=== PATIENT | male | born 1970 | race Caucasian/White ===

== ENCOUNTER 2017-03-25 02:23 | Emergency (ER) | payer MEDICAID ==
--- NOTE | 2017-03-25 03:39 | EDM.PDOC ---
ED HPI GENERAL MEDICAL PROBLEM - General Chief Complaint: Gastrointestinal Problem Stated Complaint: BLOATING Time Seen by Provider: 03/25/17 03:27 Source of Information: Reports: Patient, Family, RN Notes Reviewed History Limitations: Reports: No Limitations - History of Present Illness INITIAL COMMENTS - FREE TEXT/NARRATIVE: 46-year-old gentleman presents emergency department today with complaint of abdominal pain, he states the abdominal pain has been ongoing for the last couple of hours he has developed a fever has had nausea vomiting and loose stools multiple does have a history of abdominal surgery lumbar no shortness of breath or chest pain epigastric Pain Score (Numeric/FACES): 8 - Related Data Allergies Allergy/AdvReac Type Severity Reaction Status Date / Time erythromycin base Allergy Cannot Verified 03/25/17 03:25 Remember Tuwbdpn-Wiw-Spj Reductase Allergy Cannot Verified 03/25/17 03:25 Inhibitor Remember Sulfa (Sulfonamide Allergy Cannot Verified 03/25/17 03:25 Antibiotics) Remember Home Meds: Home Meds Aspirin [Halfprin] 81 mg PO DAILY 04/20/16 [History] Hydrocodone/Acetaminophen [[place] 5-325] 1 - 2 tab PO Q6H PRN 04/20/16 [History] Losartan Potassium [Cozaar] 100 mg PO DAILY 04/20/16 [History] Multivit-Min/Iron Fum/Folic AC [Czjup-Vmpsukx-Dlznwvqs Tablet] 1 each PO DAILY 04/20/16 [History] Omeprazole 40 mg PO DAILY 04/20/16 [History] amLODIPine [Norvasc] 5 mg PO DAILY 04/20/16 [History] Past Medical History HEENT History: Reports: Impaired Vision, Other (See Below) Other HEENT History: wisdom teeth x2 removed Respiratory History: Reports: Bronchitis, Recurrent Gastrointestinal History: Reports: Chronic Diarrhea, Colon Polyp, GERD Musculoskeletal History: Reports: Back Pain, Chronic, Fracture, Neck Pain, Chronic Endocrine/Metabolic History: Reports: Diabetes, Type II Dermatologic History: Reports: Other (See Below) Other Dermatologic History: "adult cradlecap" - Infectious Disease History Infectious Disease History: Reports: Chicken Pox, Measles - Past Surgical History Neurological Surgical History: Reports: Laminectomy, Spinal Fusion Musculoskeletal Surgical History: Reports: Carpal Tunnel, Other (See Below) Dermatological Surgical History: Reports: Skin Biopsy Social & Family History - Family History Family Medical History: Noncontributory - Tobacco Use Smoking Status *Q: Never Smoker - Caffeine Use Caffeine Use: Reports: Coffee - Alcohol Use Days Per Week of Alcohol Use: 4 Number of Drinks Per Day: 5 Total Drinks Per Week: 20 - Recreational Drug Use Recreational Drug Use: No ED ROS GENERAL - Review of Systems Review Of Systems: See Below Constitutional: Reports: Fever, Chills HEENT: Reports: No Symptoms Respiratory: Reports: No Symptoms Cardiovascular: Reports: No Symptoms GI/Abdominal: Reports: Abdominal Pain, Diarrhea, Flatus, Nausea, Vomiting : Reports: No Symptoms Musculoskeletal: Reports: No Symptoms Skin: Reports: No Symptoms Neurological: Reports: No Symptoms ED EXAM, GI/ABD - Physical Exam Exam: See Below Text/Narrative:: General: Male, not in any distress, alert and oriented x3 HEENT: head is atraumatic normocephalic, eyes pupils equal round reactive to light, sclera clear no conjunctivitis appreciated. Ears tympanic membranes clear and hanson landmarks and light reflex are present bilaterally canals are clear. Nose no septal deviation, nares are clear, no blood present. Mouth mucosa is moist and pink no erythema or exudate noted in soft palate, tongue is midline uvula is midline, dentition is intact. Neck: Supple no thyromegaly no tracheal deviation. Nodes: Cervical nodes subclavicular nodes nontender no palpable lymphadenopathy noted. Lungs: clear to auscultation bilaterally with symmetrical respirations, no adventitious noise appreciated. CV: Regular rate and rhythm S1 and S2 appreciated no murmurs rubs or gallops noted. Abdomen: Soft, obese, tender to palpation in epigastric region, no palpable masses or organomegaly appreciated, mild distention no guarding bowel sounds are present, . Neuro: Cranial nerves II through XII grossly intact Skin: Warm and dry, intact Extremities: No lower extremity edema appreciated, pedal pulse is +2. Course - Vital Signs Last Recorded V/S: Last Vital Signs Temp 103.1 F H 03/25/17 05:00 Pulse 114 H 03/25/17 05:00 Resp 18 03/25/17 05:00 BP 130/61 03/25/17 05:00 Pulse Ox 95 03/25/17 05:00 - Orders/Labs/Meds Orders: Active Orders 24 hr Category Date Time Status Vital Signs [RC] Q1H Care 03/25/17 03:34 Active Abdomen Pelvis w Cont [CT] Stat Exams 03/25/17 03:36 Taken CULTURE BLOOD [BC] Urgent Lab 03/25/17 03:45 Received CULTURE BLOOD [BC] Urgent Lab 03/25/17 03:50 Received Iopamidol [Isovue-300 (61%)] Med 03/25/17 04:45 Active 150 ml IV . DIRECTED Lactated Ringers [Ringers, Lactated] 1,000 ml Med 03/25/17 03:45 Active IV ASDIRECTED Lactated Ringers [Ringers, Lactated] 1,000 ml Med 03/25/17 05:14 Active IV BOLUS Sodium Chloride 0.9% [Saline Flush] Med 03/25/17 04:31 Active 10 ml FLUSH ONETIME PRN Blood Culture x2 Reflex Set [OM.PC] Urgent Oth 03/25/17 03:34 Ordered Medication Orders Lactated Ringer's (Ringers, Lactated) 1,000 mls @ 999 mls/hr IV ASDIRECTED [place] Last Admin: 03/25/17 03:52 Dose: 999 mls/hr Lactated Ringer's (Ringers, Lactated) 1,000 mls @ 999 mls/hr IV BOLUS ONE Stop: 03/25/17 06:14 Last Admin: 03/25/17 05:20 Dose: 999 mls/hr Iopamidol (Isovue-300 (61%)) 150 ml IV . DIRECTED [facility] Last Admin: 03/25/17 04:46 Dose: 150 ml Sodium Chloride (Saline Flush) 10 ml FLUSH ONETIME PRN PRN Reason: PER RADIOLOGY PROTOCOL Last Admin: 03/25/17 04:46 Dose: 10 ml Labs: Laboratory Tests 03/25/17 03/25/17 03/25/17 Range/Units 03:50 03:53 03:53 WBC 9.3 (4.5-11.0) K/uL RBC 5.54 (4.30-5.90) M/uL Hgb 16.6 H (12.0-15.0) g/dL Hct 49.1 (40.0-54.0) % MCV 89 (80-98) fL MCH 30 (27-31) pg MCHC 34 (32-36) % Plt Count 173 (150-400) K/uL Neut % (Auto) 89 H (36-66) % Lymph % (Auto) 4 L (24-44) % Ritchie % (Auto) 6 (2-6) % Eos % (Auto) 1 L (2-4) % Baso % (Auto) 0 (0-1) % Sodium 138 L (140-148) mmol/L Potassium 4.2 (3.6-5.2) mmol/L Chloride 102 (100-108) mmol/L Carbon Dioxide 25 (21-32) mmol/L Anion Gap 15.2 H (5.0-14.0) mmol/L BUN 22 H (7-18) mg/dL Creatinine 1.2 (0.8-1.3) mg/dL Est Cr Clr Drug Dosing 77.73 mL/min Estimated GFR (MDRD) > 60 (>60) Glucose 141 H (74-106) mg/dL Lactic Acid (0.4-2.0) mmol/L Calcium 8.9 (8.5-10.1) mg/dL Total Bilirubin 0.9 (0.2-1.0) mg/dL AST 28 (15-37) U/L ALT 70 (12-78) U/L Alkaline Phosphatase 73 (46-116) U/L Troponin I < 0.017 (0.000-0.056) ng/mL C-Reactive Protein 2.44 H (0.0-0.3) mg/dL Total Protein 7.6 (6.4-8.2) g/dL Albumin 4.0 (3.4-5.0) g/dL Globulin 3.6 H (2.3-3.5) g/dL Albumin/Globulin Ratio 1.1 L (1.2-2.2) Urine Color Urine Appearance Urine pH (4.5-8.0) Ur Specific [place] (1.008-1.030) Urine Protein (NEGATIVE) mg/dL Urine Glucose (UA) (NEGATIVE) mg/dL Urine Ketones (NEGATIVE) mg/dL Urine Occult Blood (NEGATIVE) Urine Nitrite (NEGAITVE) Urine Bilirubin (NEGATIVE) Urine Urobilinogen (NORMAL) mg/dL Ur Leukocyte Esterase (NEGATIVE) Urine RBC (0-5) Urine WBC (0-5) Ur Epithelial Cells Amorphous Sediment Urine Bacteria Urine Mucus 03/25/17 03/25/17 Range/Units 03:53 04:58 WBC (4.5-11.0) K/uL RBC (4.30-5.90) M/uL Hgb (12.0-15.0) g/dL Hct (40.0-54.0) % MCV (80-98) fL MCH (27-31) pg MCHC (32-36) % Plt Count (150-400) K/uL Neut % (Auto) (36-66) % Lymph % (Auto) (24-44) % Ritchie % (Auto) (2-6) % Eos % (Auto) (2-4) % Baso % (Auto) (0-1) % Sodium (140-148) mmol/L Potassium (3.6-5.2) mmol/L Chloride (100-108) mmol/L Carbon Dioxide (21-32) mmol/L Anion Gap (5.0-14.0) mmol/L BUN (7-18) mg/dL Creatinine (0.8-1.3) mg/dL Est Cr Clr Drug Dosing mL/min Estimated GFR (MDRD) (>60) Glucose (74-106) mg/dL Lactic Acid 2.1 H (0.4-2.0) mmol/L Calcium (8.5-10.1) mg/dL Total Bilirubin (0.2-1.0) mg/dL AST (15-37) U/L ALT (12-78) U/L Alkaline Phosphatase (46-116) U/L Troponin I (0.000-0.056) ng/mL C-Reactive Protein (0.0-0.3) mg/dL Total Protein (6.4-8.2) g/dL Albumin (3.4-5.0) g/dL Globulin (2.3-3.5) g/dL Albumin/Globulin Ratio (1.2-2.2) Urine Color Yellow Urine Appearance Clear Urine pH 5.0 (4.5-8.0) Ur Specific [place] 1.010 (1.008-1.030) Urine Protein Negative (NEGATIVE) mg/dL Urine Glucose (UA) Normal (NEGATIVE) mg/dL Urine Ketones Negative (NEGATIVE) mg/dL Urine Occult Blood Negative (NEGATIVE) Urine Nitrite Negative (NEGAITVE) Urine Bilirubin Negative (NEGATIVE) Urine Urobilinogen Normal (NORMAL) mg/dL Ur Leukocyte Esterase Negative (NEGATIVE) Urine RBC Not seen (0-5) Urine WBC Not seen (0-5) Ur Epithelial Cells Not seen Amorphous Sediment Not seen Urine Bacteria Not seen Urine Mucus Not seen Meds: Medications Generic Name Dose Route Start Last Admin Trade Name Freq PRN Reason Stop Dose Admin Lactated Ringer's 1,000 mls @ 999 mls/hr 03/25/17 03:45 03/25/17 03:52 Ringers, Lactated IV 999 mls/hr ASDIRECTED [place] Administration Lactated Ringer's 1,000 mls @ 999 mls/hr 03/25/17 05:14 03/25/17 05:20 Ringers, Lactated IV 03/25/17 06:14 999 mls/hr BOLUS ONE Administration Iopamidol 150 ml 03/25/17 04:45 03/25/17 04:46 Isovue-300 (61%) IV 150 ml . DIRECTED [place] Administration Sodium Chloride 10 ml 03/25/17 04:31 03/25/17 04:46 Saline Flush FLUSH 10 ml ONETIME PRN Administration PER RADIOLOGY PROTOCOL Discontinued Medications Generic Name Dose Route Start Last Admin Trade Name Freq PRN Reason Stop Dose Admin Aspirin 325 mg 03/25/17 05:40 03/25/17 05:50 Ecotrin PO 03/25/17 05:41 325 mg ONETIME ONE Administration Sodium Chloride 85 mls @ 3 mls/sec 03/25/17 04:31 03/25/17 04:46 Normal Saline IV 03/25/17 04:32 3 mls/sec ONETIME ONE Administration Ibuprofen 600 mg 03/25/17 05:02 03/25/17 05:12 Motrin PO 03/25/17 05:03 Not Given ONETIME ONE Departure - Departure Time of Disposition: 06:01 Disposition: Home, Self-Care 01 Condition: Good Clinical Impression: Ileus - Discharge Information Referrals: PCP,None [Primary Care Provider] - Forms: ED Department Discharge Additional Instructions: Recommend bowel rest for the next 3 days with just a clear liquid diet, recommend fever control with Tylenol, Please followup with your primary care provider in 3-5 days if not better, please call return to the emergency department with worsening of symptoms. - My Orders Last 24 Hours: My Active Orders 03/25/17 03:34 Vital Signs [RC] Q1H Blood Culture x2 Reflex Set [OM.PC] Urgent 03/25/17 03:36 Abdomen Pelvis w Cont [CT] Stat 03/25/17 03:45 CULTURE BLOOD [BC] Urgent Lactated Ringers [Ringers, Lactated] 1,000 ml IV ASDIRECTED 03/25/17 03:50 CULTURE BLOOD [BC] Urgent 03/25/17 04:31 Sodium Chloride 0.9% [Saline Flush] 10 ml FLUSH ONETIME PRN 03/25/17 04:45 Iopamidol [Isovue-300 (61%)] 150 ml IV . DIRECTED 03/25/17 05:14 Lactated Ringers [Ringers, Lactated] 1,000 ml IV BOLUS - Assessment/Plan Last 24 Hours: My Active Orders 03/25/17 03:34 Vital Signs [RC] Q1H Blood Culture x2 Reflex Set [OM.PC] Urgent 03/25/17 03:36 Abdomen Pelvis w Cont [CT] Stat 03/25/17 03:45 CULTURE BLOOD [BC] Urgent Lactated Ringers [Ringers, Lactated] 1,000 ml IV ASDIRECTED 03/25/17 03:50 CULTURE BLOOD [BC] Urgent 03/25/17 04:31 Sodium Chloride 0.9% [Saline Flush] 10 ml FLUSH ONETIME PRN 03/25/17 04:45 Iopamidol [Isovue-300 (61%)] 150 ml IV . DIRECTED 03/25/17 05:14 Lactated Ringers [Ringers, Lactated] 1,000 ml IV BOLUS Plan: Assessment Acuity = acute Site and laterality = ileus Etiology = unclear etiology Manifestations = abdominal distention, fever, tachycardia Location of injury = Home Lab values = CBC, CMP, urinalysis unremarkable CT scan shows ileus or possible small bowel obstruction partial Plan I did offer him hospital admission he declined would like to try bowel rest at home will return if his symptoms increase follow-up with primary care 3-5 days if not better Patient was in agreement with the plan all questions were answered, they were instructed to return to the emergency department or call for worsening symptoms. This note was dictated using [email or web address] voice recognition software please call with any questions.
[2017-03-25] MEDS ORDERED: Lactated Ringers 1,000 ML IV SCH (03:45)
[2017-03-25] MEDS ORDERED: Sodium Chloride 0.9% 10 ML Syringe FLUSH PRN (04:31)
[2017-03-25] MEDS ORDERED: Iopamidol 612 MG/ML 150 ML Bottle IV SCH (04:45)
[2017-03-25 05:01] VITALS: BP 130/61
[2017-03-25] MEDS: Ibuprofen 600 MG Tab PO ONE ×2 (05:07→05:12)
[2017-03-25] MEDS ORDERED: Lactated Ringers 1,000 ML IV ONE (05:14)
[2017-03-25] MEDS ORDERED: Aspirin 325 MG Tab.EC PO ONE (05:40)
[2017-03-25] MEDS ORDERED: Acetaminophen 325 MG Tab PO ONE (06:01)
== END 2017-03-25 06:15 | disposition home or self-care (01) ==
LOC: JP.ED 02:23
DX: K56.7 Ileus, unspecified (principal); E11.9 Type 2 diabetes mellitus without complications; K21.9 Gastro-esophageal reflux disease without esophagitis; Z79.82 Long term (current) use of aspirin; Z79.899 Other long term (current) drug therapy; Z88.1 Allergy status to other antibiotic agents; Z88.2 Allergy status to sulfonamides; Z88.8 Allergy status to other drugs, medicaments and biological substances
CPT/HCPCS: 36415; 74177; 80053; 81001; 83605; 84484; 85025; 86140; 87040; 87804; 96360; 96361; 99284; A9270; J7030; J7050; J7120; 99283

== ENCOUNTER 2021-04-04 20:04 | Emergency (ER) | payer MEDICAID ==
[2021-04-04 20:48] VITALS: BP 154/89; PULSE 82
--- NOTE | 2021-04-04 21:05 | EDM.PDOC ---
ED HPI GENERAL MEDICAL PROBLEM - General Chief Complaint: Lower Extremity Injury/Pain Stated Complaint: LEFT CALF-WEAK AND TINGLY Time Seen by Provider: 04/04/21 21:05 Source of Information: Reports: Patient, RN Notes Reviewed History Limitations: Reports: No Limitations - History of Present Illness INITIAL COMMENTS - FREE TEXT/NARRATIVE: Luke presents today for complaints of left lower leg weakness with use of stairs since yesterday when he removed 6 boat batteries from boats. He states he feels like his foot is asleep and weaker then the right foot. He denies any other i njury, trauma, fever, chills, nausea, vomiting or other concerns. He denies loss of sensation to his genitals or bladder/bowel incontinence. History of lumbar fusions. Left Lower Leg Pain Score (Numeric/FACES): 6 - Related Data Allergies Allergy/AdvReac Type Severity Reaction Status Date / Time erythromycin base Allergy Cannot Verified 04/04/21 20:50 Remember Qflfaxc-GZA-NrI Reductase Allergy Cannot Verified 04/04/21 20:50 Inhibitor Remember [Mbjpmmh-Drk-Ojg Reductase Inhibitor] Sulfa (Sulfonamide Allergy Cannot Verified 04/04/21 20:50 Antibiotics) Remember Home Meds: Home Meds Aspirin [Halfprin] 81 mg PO DAILY 04/20/16 [History] Losartan Potassium [Cozaar] 100 mg PO DAILY 04/20/16 [History] Multivit-Min/Iron Fum/Folic AC [Eoefg-Vjlumni-Kzxaqzvb Tablet] 1 each PO DAILY 04/20/16 [History] Omeprazole 40 mg PO DAILY 04/20/16 [History] Cholecalciferol (Vitamin D3) [Vitamin D3] 1 tab PO DAILY 04/04/21 [History] Sucralfate 1 tab PO DAILY 04/04/21 [History] amLODIPine Besylate [Amlodipine Besylate] 1 tab PO DAILY 04/04/21 [History] atenoloL [Atenolol] 1 tab PO DAILY 04/04/21 [History] glipiZIDE [Glipizide ER] 1 tab PO DAILY 04/04/21 [History] hydroCHLOROthiazide [Hydrochlorothiazide] 1 tab PO DAILY 04/04/21 [History] metFORMIN HCl [Metformin HCl] 1 tab PO BID 04/04/21 [History] Past Medical History HEENT History: Reports: Impaired Vision, Other (See Below) Other HEENT History: wisdom teeth x2 removed Cardiovascular History: Reports: Hypertension Respiratory History: Reports: Bronchitis, Recurrent Gastrointestinal History: Reports: Chronic Diarrhea, Colon Polyp, GERD Musculoskeletal History: Reports: Back Pain, Chronic, Fracture, Neck Pain, Chronic Endocrine/Metabolic History: Reports: Diabetes, Type II Dermatologic History: Reports: Other (See Below) Other Dermatologic History: "adult cradlecap" - Infectious Disease History Infectious Disease History: Reports: Chicken Pox, Measles - Past Surgical History HEENT Surgical History: Reports: None GI Surgical History: Reports: Colonoscopy Endocrine Surgical History: Reports: None Neurological Surgical History: Reports: Laminectomy, Spinal Fusion Musculoskeletal Surgical History: Reports: Carpal Tunnel, Other (See Below) Other Musculoskeletal Surgeries/Procedures:: ACL repair right knee; left and right elbow scopes for tennis elbow Dermatological Surgical History: Reports: Skin Biopsy Social & Family History - Family History Family Medical History: No Pertinent Family History - Tobacco Use Tobacco Use Status *Q: Never Tobacco User - Caffeine Use Caffeine Use: Reports: Coffee - Recreational Drug Use Recreational Drug Use: No Review of Systems - Review of Systems Review Of Systems: See Below Constitutional: Reports: No Symptoms Eyes: Reports: No Symptoms Ears: Reports: No Symptoms Nose: Reports: No Symptoms Mouth/Throat: Reports: No Symptoms Respiratory: Reports: No Symptoms Cardiovascular: Reports: No Symptoms GI/Abdominal: Reports: No Symptoms Genitourinary: Reports: No Symptoms Musculoskeletal: Reports: Back Pain (chronic low back pain), Other (feels like left lower leg/foot are asleep). Denies: Leg Pain, Foot Pain (does complain of foot weakness with range of motion ), Joint Swelling, Muscle Pain, Muscle Stiffness Skin: Reports: No Symptoms Neurological: Reports: No Symptoms Psychiatric: Reports: No Symptoms ED EXAM, GENERAL - Physical Exam Exam: See Below Exam Limited By: No Limitations General Appearance: Alert, WD/WN, No Apparent Distress Eye Exam: Bilateral Eye: Normal Inspection, PERRL Ears: Normal External Exam, Normal Canal, Hearing Grossly Normal, Normal TMs Nose: Normal Inspection, Normal Mucosa, No Blood Throat/Mouth: Normal Inspection, Normal Lips, Normal Teeth, Normal Gums, Normal Oropharynx, Normal Voice, No Airway Compromise Head: Atraumatic, Normocephalic Neck: Normal Inspection, Supple, Non-Tender, Full Range of Motion. No: Lymphadenopathy (R), Lymphadenopathy (L) Respiratory/Chest: No Respiratory Distress, Lungs Clear, Normal Breath Sounds, No Accessory Muscle Use, Chest Non-Tender. No: Crackles, Rales, Rhonchi, Wheezing, Retractions, Splinting Cardiovascular: Normal Peripheral Pulses, Regular Rate, Rhythm, No Edema, No Gallop, No Murmur, No Rub Peripheral Pulses: 4+: Radial (L), Radial (R), Dorsalis Pedis (L), Dorsalis Pedis (R) GI/Abdominal: Normal Bowel Sounds, Soft, Non-Tender, No Organomegaly, No Distention, No Abnormal Bruit, Pelvis Stable. No: Guarding, Rigid, Rebound, Tender (Male) Exam: Deferred Rectal (Males) Exam: Deferred Back Exam: Normal Inspection, Full Range of Motion. No: CVA Tenderness (R), CVA Tenderness (L), Muscle Spasm, Paraspinal Tenderness, Vertebral Tenderness Extremities: Non-Tender, No Pedal Edema, Normal Capillary Refill, Limited Range of Motion (difficulty with extension of left foot, flexion intact. Weakness noted with tip toe walking left foot. ). No: Quentin's Sign (negative), Increased Warmth, Mottled, Pallor, Redness Neurological: Alert, Oriented, CN II-XII Intact, Normal Cognition, Normal Gait, Normal Reflexes, No Motor/Sensory Deficits Psychiatric: Normal Affect, Normal Mood Skin Exam: Warm, Dry, Intact, Normal Color, No Rash, Other (Noted hair growth to bilateral lower 2nd toes. No hair growth from foot to mid-calf. ) Lymphatic: No Adenopathy Course - Vital Signs Last Recorded V/S: Last Vital Signs Temp 36.3 C 04/04/21 20:47 Pulse 82 04/04/21 20:47 Resp 16 04/04/21 20:47 BP 154/89 H 04/04/21 20:47 Pulse Ox 95 04/04/21 20:47 - Orders/Labs/Meds Labs: Laboratory Tests 04/04/21 04/04/21 04/04/21 Range/Units 21:45 21:45 21:45 WBC 7.3 (4.5-11.0) K/uL RBC 5.23 (4.30-5.90) M/uL Hgb 15.6 H (12.0-15.0) g/dL Hct 45.6 (40.0-54.0) % MCV 87 (80-98) fL MCH 30 (27-31) pg MCHC 34 (32-36) % Plt Count 143 L (150-400) K/uL D-Dimer, Quantitative 294.50 (0.0-500.0) ng/mL Sodium 134 L (140-148) mmol/L Potassium 3.9 (3.6-5.2) mmol/L Chloride 97 L (100-108) mmol/L Carbon Dioxide 26 (21-32) mmol/L Anion Gap 14.9 H (5.0-14.0) mmol/L BUN 21 H (7-18) mg/dL Creatinine 0.8 (0.8-1.3) mg/dL Est Cr Clr Drug Dosing 115.04 mL/min Estimated GFR (MDRD) > 60 (>60) Glucose 140 H (74-106) mg/dL Calcium 9.2 (8.5-10.1) mg/dL D-dimer negative Meds: Medications Discontinued Medications Generic Name Dose Route Start Last Admin Trade Name [place] PRN Reason Stop Dose Admin Ketorolac Tromethamine 30 mg 04/04/21 22:31 04/04/21 22:35 Ketorolac 30 Mg/Ml Sdv IM 04/04/21 22:32 30 mg ONETIME ONE Administration Discussed lab work and recommendations with Luke, he is in agreement with plan. All his questions were answered. Departure - Departure Time of Disposition: 22:35 Disposition: Home, Self-Care 01 Condition: Good Clinical Impression: Lumbar back pain with radiculopathy affecting left lower extremity, Weakness of left foot - Discharge Information Instructions: Radicular Pain Referrals: Oswald Allison NP [Primary Care Provider] - Forms: ED Department Discharge Additional Instructions: You have been evaluated and treated for low back pain with radiculopathy to left foot with weakness of left foot/toes upon extension. Significant history of lumbar issues. Lab work did not show any acute findings. D-dimer negative - no blood clot. You were given toradol 30mg IM for discomfort. You can try use of tylenol as needed for pain. Use of NSAID and muscle relaxer work best to help with radiculopathy. Use has bothered your stomach in the past - try use of naproxen 500mg by mouth every 12 hours for pain and monitor your stomach. Use of steroid would cause increase blood sugar - and should be monitored by your primary if used. Avoid repetitive movements that increase pain. Avoid lifting heavy objects until improvement. Follow up with primary in 7 to 10 days for recheck - you most likely need a MRI of your lumbosacral spine for ongoing evaluation and new left foot weakness. Follow up with neurosurgeon is also appropriate as determined per your primary provider. Sepsis Event Note (ED) - Evaluation Sepsis Screening Result: No Definite Risk - Focused Exam Vital Signs: Vital Signs Temp Pulse Resp BP Pulse Ox 04/04/21 20:47 36.3 C 82 16 154/89 H 95 - Assessment/Plan Assessment:: Lumbar back pain with radiculopathy affecting left lower extremity, Weakness of left foot Chronic lumbar issues, history of fusion, chronic pain, with poorly controlled diabetes. Plan: Patient evaluated and treated for low back pain with radiculopathy to left foot with weakness of left foot/toes upon extension. Significant history of lumbar issues. Lab work did not show any acute findings. D-dimer negative - no blood clot. He was given toradol 30mg IM for discomfort. He can try use of tylenol as needed for pain. Use of NSAID and muscle relaxer work best to help with radiculopathy. Use has bothered his stomach in the past - try use of naproxen 500mg by mouth every 12 hours for pain and monitor your stomach. Use of steroid would cause increase blood sugar - and should be monitored by primary if used. Avoid repetitive movements that increase pain. Avoid lifting heavy objects until improvement. Follow up with primary in 7 to 10 days for recheck - he will most likely need a MRI lumbosacral spine for ongoing evaluation and new left foot weakness. Follow up with neurosurgeon is also appropriate as determined per his primary provider.
[2021-04-04] MEDS ORDERED: Ketorolac 30 MG/ML SDV IM ONE (22:31)
== END 2021-04-04 22:53 | disposition home or self-care (01) ==
LOC: JP.ED 20:04
DX: R53.1 Weakness (principal); M54.16 Radiculopathy, lumbar region; E11.9 Type 2 diabetes mellitus without complications; K21.9 Gastro-esophageal reflux disease without esophagitis; I10 Essential (primary) hypertension; Z79.82 Long term (current) use of aspirin; Z88.1 Allergy status to other antibiotic agents; Z88.2 Allergy status to sulfonamides; Z79.84 Long term (current) use of oral hypoglycemic drugs; Z79.899 Other long term (current) drug therapy
CPT/HCPCS: 36415; 80048; 85027; 85379; 96372; 99283; J1885

== ENCOUNTER → 2021-09-13 | Day surgery (SDC) | payer MEDICAID ==
[~2021-09-13] MED LIST: Midazolam 1 MG/ML 2 ML SDV ONE; Propofol 200 MG/20 ML SDV ONE; Sodium Chloride 0.9% 1,000 ML IV SCH; fentaNYL 100 MCG/2 ML SDV ONE
[2021-09-13 09:01] VITALS: BP 133/69; PULSE 61
== END ==
LOC: JP.SDS 06:28
PROVIDERS: ATTEND Surgery
DX: D12.3 Benign neoplasm of transverse colon (principal); K21.00 Gastro-esophageal reflux disease with esophagitis, without bleeding; K57.30 Diverticulosis of large intestine without perforation or abscess without bleeding; I10 Essential (primary) hypertension; E11.9 Type 2 diabetes mellitus without complications; E66.9 Obesity, unspecified; Z87.19 Personal history of other diseases of the digestive system; Z68.35 Body mass index [BMI] 35.0-35.9, adult
CPT/HCPCS: 88305; J2250; J2704; J3010; J7030

== ENCOUNTER 2024-09-13 07:26 | Day surgery (SDC) | payer MEDICAID ==
[2024-09-13] MEDS ORDERED: fentaNYL 100 MCG/2 ML SDV ONE (07:35)
[2024-09-13] MEDS ORDERED: Midazolam 1 MG/ML 2 ML SDV ONE (07:35)
[2024-09-13] MEDS ORDERED: Propofol 200 MG/20 ML SDV ONE (07:35)
[2024-09-13] MEDS: Lactated Ringers 1,000 ML IV SCH (08:26)
[2024-09-13 10:04] VITALS: BP 142/90; PULSE 75
== END 2024-09-13 10:05 | disposition home or self-care (01) ==
LOC: JP.SDS 07:26
PROVIDERS: ATTEND Surgery
DX: Z12.11 Encounter for screening for malignant neoplasm of colon (principal); D12.4 Benign neoplasm of descending colon; K57.30 Diverticulosis of large intestine without perforation or abscess without bleeding; I10 Essential (primary) hypertension; K21.9 Gastro-esophageal reflux disease without esophagitis; E11.9 Type 2 diabetes mellitus without complications; Z86.0100 Personal history of colon polyps, unspecified
CPT/HCPCS: 00811; 45380; 88305; J2250; J2704; J3010; J7120

== ENCOUNTER 2025-01-09 02:33 | Emergency (ER) | payer MEDICAID ==
[2025-01-09 03:23] LABS: BASOPHILS ABSOLUTE AUTO 0.04 K/uL (0.00-0.10); BASOPHILS PERCENT AUTO 0.3 % (0.1-1.3); EOSINOPHILS ABSOLUTE AUTO 0.18 K/uL (0.00-0.40); EOSINOPHILS PERCENT AUTO 1.4 % (0.0-5.4); IMMATURE GRAN ABSOLUTE AUTO 0.09 K/uL (0.00-0.23); IMMATURE GRAN PERCENT AUTO 0.7 % (0.0-0.7); LYMPHOCYTES ABSOLUTE AUTO 2.44 K/uL (0.8-3.3); LYMPHOCYTES PERCENT AUTO 19.1 % (11.4-47.7); MONOCYTES ABSOLUTE AUTO 0.87 K/uL (0.20-0.90); MONOCYTES PERCENT AUTO 6.8 % (3.3-12.6); NEUTROPHILS ABSOLUTE AUTO 9.14 K/uL (1.0-7.6); NEUTROPHILS PERCENT AUTO 71.7 % (40.0-78.1); PLATELET COUNT,PLT 226 K/uL (130-375); RED BLOOD CELL COUNT 4.66 M/uL (4.14-5.76); WHITE BLOOD CELL COUNT,WBC 12.8 K/uL (3.2-11.0)
[2025-01-09 03:44] LABS: A/G RATIO 1.1 (1.2-2.2); ALANINE AMINOTRANSFERASE,ALT 80 U/L (12-78); ASPARTATE AMNIOTRANSFERASE,AST 34 U/L (15-37); BILIRUBIN TOTAL 0.8 mg/dL (0.2-1.0); BLOOD UREA NITROGEN,BUN 28 mg/dL (7-18); CARBON DIOXIDE,CO2 27 mmol/L (21-32); CHLORIDE,CL 99 mmol/L (100-108); CREATININE 1.0 mg/dL (0.8-1.3); EST CRCL DRUG DOSING (CG) 86.51 mL/min; ESTIMATED GFR 88 mL/min (>60); GLUCOSE RANDOM 168 mg/dL (74-106); POTASSIUM,K 3.9 mmol/L (3.6-5.2); PROTEIN TOTAL,TP 7.5 g/dL (6.4-8.2); SODIUM,NA 137 mmol/L (140-148)
[2025-01-09] MEDS: Ketorolac 30 MG/ML SDV IM ONE (04:06)
[2025-01-09 04:55] VITALS: BP 144/83; PULSE 88
== END 2025-01-09 05:06 | disposition home or self-care (01) ==
LOC: JP.ED 02:33
DX: M25.561 Pain in right knee (principal); G89.18 Other acute postprocedural pain; E66.9 Obesity, unspecified; E11.9 Type 2 diabetes mellitus without complications; Z88.1 Allergy status to other antibiotic agents; Z88.2 Allergy status to sulfonamides; Z88.8 Allergy status to other drugs, medicaments and biological substances; Z91.018 Allergy to other foods; Z79.82 Long term (current) use of aspirin; Z79.899 Other long term (current) drug therapy; Z87.891 Personal history of nicotine dependence; Z68.36 Body mass index [BMI] 36.0-36.9, adult
CPT/HCPCS: 36415; 80053; 82947; 85025; 96372; 99283; J1885

== ENCOUNTER 2025-01-09 20:10 | Emergency (ER) | payer MEDICAID ==
[2025-01-09 23:02] VITALS: BP 115/70; PULSE 58
[2025-01-10 00:04] LABS: BASOPHILS ABSOLUTE AUTO 0.05 K/uL (0.00-0.10); BASOPHILS PERCENT AUTO 0.4 % (0.1-1.3); EOSINOPHILS ABSOLUTE AUTO 0.21 K/uL (0.00-0.40); EOSINOPHILS PERCENT AUTO 1.8 % (0.0-5.4); IMMATURE GRAN ABSOLUTE AUTO 0.14 K/uL (0.00-0.23); IMMATURE GRAN PERCENT AUTO 1.2 % (0.0-0.7); LYMPHOCYTES ABSOLUTE AUTO 2.54 K/uL (0.8-3.3); LYMPHOCYTES PERCENT AUTO 22.3 % (11.4-47.7); MONOCYTES ABSOLUTE AUTO 0.85 K/uL (0.20-0.90); MONOCYTES PERCENT AUTO 7.5 % (3.3-12.6); NEUTROPHILS ABSOLUTE AUTO 7.61 K/uL (1.0-7.6); NEUTROPHILS PERCENT AUTO 66.8 % (40.0-78.1); PLATELET COUNT,PLT 221 K/uL (130-375); RED BLOOD CELL COUNT 4.69 M/uL (4.14-5.76); WHITE BLOOD CELL COUNT,WBC 11.4 K/uL (3.2-11.0)
[2025-01-10] MEDS: Ketorolac 30 MG/ML SDV IM ONE (00:17)
[2025-01-10 00:44] LABS: A/G RATIO 1.1 (1.2-2.2); ALANINE AMINOTRANSFERASE,ALT 78 U/L (12-78); ASPARTATE AMNIOTRANSFERASE,AST 29 U/L (15-37); BILIRUBIN TOTAL 1.2 mg/dL (0.2-1.0); BLOOD UREA NITROGEN,BUN 24 mg/dL (7-18); CARBON DIOXIDE,CO2 23 mmol/L (21-32); CHLORIDE,CL 96 mmol/L (100-108); CREATININE 0.9 mg/dL (0.8-1.3); EST CRCL DRUG DOSING (CG) 94.63 mL/min; ESTIMATED GFR 100 mL/min (>60); GLUCOSE RANDOM 119 mg/dL (74-106); POTASSIUM,K 3.6 mmol/L (3.6-5.2); PROTEIN TOTAL,TP 7.7 g/dL (6.4-8.2); SODIUM,NA 136 mmol/L (140-148)
[2025-01-10 00:46] LABS: LACTIC ACID 4.0 mmol/L (0.4-2.0)
== END 2025-01-10 01:05 | disposition left against medical advice (07) ==
LOC: JP.ED 20:10
DX: Z47.1 Aftercare following joint replacement surgery (principal); I10 Essential (primary) hypertension; E11.9 Type 2 diabetes mellitus without complications; Z88.2 Allergy status to sulfonamides; Z79.82 Long term (current) use of aspirin
CPT/HCPCS: 36415; 80053; 83605; 85025; 86140; 96372; 99283; J1885